=== PATIENT | male | born 1975 | race Caucasian/White ===

== ENCOUNTER 2023-02-11 21:38 | Emergency (ER) | payer SELFPAY ==
[~2023-02-11] VITALS: Ht 175.3 cm; Wt 82.0 kg
[2023-02-11 21:41] VITALS: O2SAT 98
[2023-02-11] MEDS ORDERED: ONDANSETRON 4MG ODT PO ONE (21:45)
[2023-02-11] MEDS ORDERED: LORAZEPAM 1MG TABLET PO ONE (21:45)
[2023-02-11] MEDS ORDERED: ACETAMINOPHEN 325MG TABLET PO ONE (21:45)
[2023-02-11] MEDS ORDERED: MAGNESIUM/ALUMINUM HYDROXIDE/SIMETHICONE 30ML UDC PO ONE (23:00)
[2023-02-11] MEDS ORDERED: SODIUM CHLORIDE 0.9% 1,000 ML IV ONE (23:00)
[2023-02-11] MEDS ORDERED: ONDANSETRON HCL 4MG/2ML INJ IV ONE (23:00)
[2023-02-12 00:11] LABS: BASOPHILS % 0.7 % (0.0-2.0); HEMATOCRIT. 40.9 % (42.0-52.0); HEMOGLOBIN. 13.6 g/dL (14.0-18.0); LYMPHOCYTES % 9.5 % (20.0-50.0); MEAN CORPUSCULAR VOLUME 90.3 fL (80.0-94.0); MEAN PLATELET VOLUME 8.6 fl (7.4-10.4); MONOCYTES % 6.8 % (2.0-8.0); RED BLOOD CELL COUNT 4.53 mill/uL (4.7-6.1); RED CELL DISTRIBUTION WIDTH 15.7 % (11.6-14.6)
[2023-02-12 00:35] LABS: CHLORIDE 101 mEq/L (98-107)
[2023-02-12 00:43] LABS: ETHANOL BLOOD < 10 mg/dL (-10)
[2023-02-12] MEDS ORDERED: ONDA4TAB50 MT (00:58)
[2023-02-12] MEDS ORDERED: THIA250T3 MT (00:59)
[2023-02-12 02:00] VITALS: BP 121/75; PULSE 96; RESP 14; TEMP 98.9
[2023-02-14 08:09] LABS: PLATELET 36 x1000/uL (130-400)
== END 2023-02-12 02:33 | disposition home or self-care (01) ==
LOC: ER 21:38
DX: F10.229 Alcohol dependence with intoxication, unspecified (principal); R56.9 Unspecified convulsions; Y90.0 Blood alcohol level of less than 20 mg/100 ml; F12.10 Cannabis abuse, uncomplicated
CPT/HCPCS: 80053; 80307; 80329; 80320; 82140; 83690; 85025; 36415; 70450; 96361; 96374; 99285; Q0162; J2405; J7030; Z7610 ×4; G0480